=== PATIENT | female | born 1980 | race Two or more races ===

== ENCOUNTER 2024-05-29 10:02 | Outpatient (RCR) | payer MEDICAID, SELFPAY ==
[2024-05-23 11:17] LABS: Basophils % (Auto) 0 % (0-2.5); Eosinophils # (Auto) 0.2 Thou/mm3 (0.0-0.5); Eosinophils % (Auto) 2 % (0-10); Hematocrit 44.9 % (36.0-46.0); Hemoglobin 15.3 g/dL (12.0-16.0); Immature Granulocytes % (Auto) 1 % (0-0); Immature Granulocytes Auto 0.07 Thou/mm3 (0.00-0.00); Lymphocytes # (Auto) 3.3 Thou/mm3 (1.0-4.8); Lymphocytes % (Auto) 36 % (10-50); Mean Corpuscular HGB Conc 34.1 g/dl (31.0-37.0); Mean Corpuscular Hemoglobin 31.9 pg (25.0-35.0); Mean Corpuscular Volume 94 fL (80-100); Monocytes # (Auto) 0.4 Thou/mm3 (0.0-0.8); Monocytes % (Auto) 4 % (0-12); Neutrophils # (Auto) 5.4 Thou/mm3 (1.8-7.7); Neutrophils % (Auto) 58 % (37-80); Nucleated Red Blood Cell % 0 /100 WBC (0); Platelet Count 206 Thou/mm3 (140-440); Red Blood Count 4.79 Miln/mm3 (4.00-5.20); White Blood Count 9.3 Thou/mm3 (3.6-11.0)
[2024-05-23 11:38] LABS: Alanine Aminotransferase 20 U/L (10-49); Albumin, Serum 4.8 gm/dL (3.5-5.0); Albumin/Globulin Ratio 1.7 (1.2-2.2); Alkaline Phosphatase 78 U/L (46-116); Anion Gap 11 (7-16); Aspartate Amino Transferase 17 U/L (0-34); BUN/Creatinine Ratio 26 Ratio (12-20); Bilirubin,Total 0.4 mg/dL (0.3-1.2); Blood Urea Nitrogen 13 mg/dL (9-23); Calcium 9.4 mg/dL (8.3-10.6); Calcium (Corrected) 9.4 mg/dL (8.5-10.1); Carbon Dioxide 25.5 mMol/L (20.0-31.0); Carcinoembryonic Antigen 1.9 ng/mL (0.0-5.0); Chloride 101 mMol/L (98-107); Creatinine (Component) 0.5 mg/dL (0.6-1.3); Globulin 2.9 gm/dL (2.3-3.5); Glucose 135 mg/dL (74-106); Osmolality,Calculated 275 (275-295); Potassium 3.9 mMol/L (3.4-5.1); Sodium 137 mMol/L (136-145); Total Protein 7.7 gm/dL (5.7-8.2); eGFR > 60 See Note
--- NOTE | 2024-06-16 17:48 | CTCFLWUP_ITS ---
Patient: URSZULA RACHEL : 1980 Page 2 of 2 FOLLOW UP NOTE DATE OF SERVICE: 05/29/2024 A telemedicine--patient was called on her phone at the agreed upon time. Confirmed patient's identit y by her name and date of . Patient consented to continue telephone visit. NAME: URSZULA RACHEL ACCOUNT: [id number] : 1980 AGE: 44 REASON FOR VISIT: Follow-up Interval history Patient is here for follow-up. She has been on capecitabine. She had her last scan in February ch showed her in complete remission. She does not have any complaints from capecitabine and recently started her cycle again. 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 Was on maintenance Capecitabine. Capecitabine stopped on 10/12/2022. Capecitabine restarted on 11/18/2023. Ms. Rachel had ileostomy takedown with ileocolectomy on 12/21/2022. History of diabetes Maintenance Capecitabine restarted on 11/18/2023 DATE OF DIAGNOSIS: 07/27/2021 STAGE/TNM: Stage IV metastatic colorectal cancer TREATMENT HISTORY: Care?Plan Start?Date Cycle Day Intent mFOLFOX-6?+?Bevacizumab?5?mg/kg 11/30/2021 1 14 Palliative On capecitabine 06/07/2022 till date HPI Urszula Rachel is a 44-year-old ENG speaking female with history of diabetes has been having int ermittent pain in the lower abdominal region since July 2020. She was initially treated for what antibiotics for UTI. She was also having constipation for last few years. Denies any history of he matochezia or melena. Denies any history of diarrhea. 02/26/2021: Ultrasound of the pelvis? 04/16/2021: CT scan of the pelvis 05/19/2021: Ms. Rachel had CT-guided biopsy of the right pelvic mass? 07/05/2021: Colonoscopy? 08/16/2021: Patient underwent exploratory laparotomy and right colectomy. 11/30/2021: Ms. Rachel received first cycle of modified FOLFOX 6 with Avastin. 11/30/2021 - 05/18/2022: S/p 12 cycles of FOLFOX 6 and bevacizumab. For last 2 cycles Ms. Rachel did no t get oxaliplatin in view of peripheral neuropathy. 03/31/2022: CT scan of the chest abdomen and pelvis with IV contrast 05/22/2022: Ms. Rachel is started on maintenance Capecitabine 2 g p.o. twice daily for 14 days followed by 7 days rest. 2022: CT scan of the chest abdomen and pelvis with IV contrast 10/11/2022: CT scan of the soft tissue of neck with IV contrast 10/12/2022: Capecitabine stopped in anticipation of reversal of colostomy surgery. 12/21/2022: Ms. Rachel had ileostomy reversal as well as repair of the para ileostomy hernia. 08/31/2023: CT scan of the abdomen and pelvis with IV contrast 11/18/2023: Ms. Rachel is started on Capecitabine in the management setting. She was only able to tolera te capecitabine 1 g p.o. twice daily for 14 days. Unfortunately she was having significantly worsene d diarrhea as well as itching and tingling. OTHER MEDICAL HISTORY/CONDITIONS: Diabetes? Colon?CA Exp Lap right colectomy with resection right ovary and fallopian tube; resection colon low anterior r esction with end to end anastomosis; small bowel resection wiht end ileostomy; left salingo-oophorect kt - 08/17/2021 Tonsillectomy - age 17 FAMILY HISTORY: Patient?denies?family?cancer?history. 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 capecitabine - 500 mg 2 tab Twice a Day 2. Januvia - 25 mg 1 tab As directed 3. Marinol - 2.5 mg 1 Capsule twice a day 4. morphine - 30 mg 1 tab three times a day 5. ondansetron HCl - 8 mg 1 tab three times a day 6. Percocet - 10-325 mg 1 tab four times a day 7. pioglitazone - 15 mg 1 tab Daily 8. Steglatro - 15 mg 1 tab Daily Medications Last Reconciled by Araseli Bond LVN on 04/04/2024 ALLERGIES: No Known Drug Allergies REVIEW OF SYSTEMS: A complete 14-point review of systems was performed and is negative except as noted in interval histo ry. LABORATORY DATA: I have personally reviewed and interpreted each of the patient?s relevant lab tests, abnormal finding s are below: Date 05/23/24 ??WHITE?BLOOD?COUNT?(Thou/mm3) 9.3 ??RED?BLOOD?COUNT?(Miln/mm3) 4.79 ??HEMOGLOBIN?(gm/dl) 15.3 ??HEMATOCRIT?(%) 44.9 ??PLATELET?COUNT?(Thou/mm3) 206 ??NEUTROPHILS?%,?AUTO?(%) 58 ??LYMPH?%,?AUTO?(%) 36 ??NEUTROPHILS,?AUTO?(Thou/mm3) 5.4 IMPRESSION/PLAN: Metastatic colorectal cancer Status post 6 cycles of modified FOLFOX with bevacizumab K-mya wild-type BRAF mutation negative KATERIN low tumor mutation burden: Adenocarcinoma of cecum with om ental involvement MMR proficient Had extensive surgery status post ileostomy reversal as well as parallel ileostomy hernia repair 03/30/2023 CT scan of the abdomen and pelvis with IV contrast negative CT scan 02/20/2024 negative for any recurrent tumor Continue capecitabine and maintenance setting CEA is less than [address] chest abdomen pelvis with IV contrast as PET scan was denied RETURN TO CLINIC: RTC in 3 months BILLING AND COMPLIANCE: I reviewed external records from providers outside my specialty as summarized above. I spent a total of 50 minutes on this patient?s care on the day of their visit excluding time spent related to any bi lled procedures. This time includes time spent with the patient as well as time spent documenting in the medical record, reviewing patients records and tests, obtaining history, placing orders, communi cating with other healthcare professionals, counseling the patient, family or caregiver, and/or care coordination for the diagnoses above. Electronically Signed by: Jeremie Cook MD T: 5:46 PM CC: PCP: Vernon Barrett Referring: Vernon Barrett This document was completed utilizing speech recognition software. Grammatical errors, random word in sertions, pronoun errors, and incomplete sentences are an occasional consequence of this system due t o software limitations, ambient noise, and hardware issues. Any formal questions or concerns about th e content, text or information contained within the body of this dictation should be directly address ed to the provider for clarification.
== END 2024-06-18 23:59 | disposition home or self-care (01) ==
LOC: SCTC 10:02
PROVIDERS: PCP Family Medicine; Referring Provider Family Medicine; Visit Provider Internal Medicine Hematology & Oncology
DX: C18.8 Malignant neoplasm of overlapping sites of colon (principal); Z93.2 Ileostomy status; Z90.49 Acquired absence of other specified parts of digestive tract; G62.0 Drug-induced polyneuropathy; T45.1X5D Adverse effect of antineoplastic and immunosuppressive drugs, subsequent encounter; Z92.21 Personal history of antineoplastic chemotherapy
CPT/HCPCS: 36591; 80053; 82378; 85025; J1642

== ENCOUNTER 2024-07-04 07:57 | Outpatient (RCR) | payer MEDICAID, SELFPAY ==
--- NOTE | 2024-07-04 08:37 | CTCFLWUP_ITS ---
[facility] [address] [place], [place] [address] FOLLOW-UP NOTE Date: 07/04/2024 MR#: [id number] Name: URSZULA RACHEL : 1980 Dx: C18.8 Malignant neoplasm of overlapping sites of colon Identification. Patient with stage IV adeno CA the cecum with omental involvement MMR proficient. E xtensive surgery status post ileostomy reversal as well as parallel ileostomy hernia repair 2021 and 2022. Had multiple cycles of FOLFOX bevacizumab recently has been on capecitabine and told to hold for the moment by Dr. Cook according to patient ... New CT scan pending PET scan was denied by insurance. Recent CEA and prior CT scans suggest she i s in remission. Currently awaiting hernia surgery which hopefully will alleviate chronic pain that she is still havin g. Renewed her Percocet and morphine and checked Monitoring Division website. Electronically signed by: Joe Lopez M.D. 07/04/2024 8:34 AM
== END 2024-07-19 23:59 | disposition home or self-care (01) ==
LOC: SCTC 07:57
PROVIDERS: PCP Family Medicine; Referring Provider Family Medicine; Visit Provider Radiology Therapeutic Radiology
DX: C18.8 Malignant neoplasm of overlapping sites of colon (principal); Z93.2 Ileostomy status; G89.29 Other chronic pain
CPT/HCPCS: 99213; G0463

== ENCOUNTER → 2024-07-22 | Outpatient (CLI) | payer MEDICAID, SELFPAY ==
[2024-07-22 11:37] LABS: Basophils % (Auto) 0 % (0-2.5); Eosinophils # (Auto) 0.1 Thou/mm3 (0.0-0.5); Eosinophils % (Auto) 1 % (0-10); Hematocrit 46.3 % (36.0-46.0); Hemoglobin 15.9 g/dL (12.0-16.0); Immature Granulocytes % (Auto) 1 % (0-0); Lymphocytes % (Auto) 28 % (10-50); Mean Corpuscular HGB Conc 34.3 g/dl (31.0-37.0); Mean Corpuscular Hemoglobin 31.6 pg (25.0-35.0); Mean Corpuscular Volume 92 fL (80-100); Monocytes # (Auto) 0.5 Thou/mm3 (0.0-0.8); Monocytes % (Auto) 5 % (0-12); Neutrophils # (Auto) 6.8 Thou/mm3 (1.8-7.7); Neutrophils % (Auto) 65 % (37-80); Nucleated Red Blood Cell % 0 /100 WBC (0); Platelet Count 223 Thou/mm3 (140-440); RDW Standard Deviation 45.4 fL (36.4-46.3); Red Blood Count 5.03 Miln/mm3 (4.00-5.20); White Blood Count 10.6 Thou/mm3 (3.6-11.0)
[2024-07-22 11:52] LABS: Alanine Aminotransferase 19 U/L (10-49); Albumin/Globulin Ratio 1.5 (1.2-2.2); Alkaline Phosphatase 80 U/L (46-116); Anion Gap 11 (7-16); Aspartate Amino Transferase 18 U/L (0-34); BUN/Creatinine Ratio 28 Ratio (12-20); Bilirubin,Total 0.5 mg/dL (0.3-1.2); Blood Urea Nitrogen 14 mg/dL (9-23); Calcium 9.8 mg/dL (8.3-10.6); Calcium (Corrected) 9.8 mg/dL (8.5-10.1); Carbon Dioxide 23.9 mMol/L (20.0-31.0); Chloride 104 mMol/L (98-107); Creatinine (Component) 0.5 mg/dL (0.6-1.3); Globulin 3.3 gm/dL (2.3-3.5); Glucose 144 mg/dL (74-106); Osmolality,Calculated 281 (275-295); Potassium 4.2 mMol/L (3.4-5.1); Sodium 139 mMol/L (136-145); Total Protein 8.3 gm/dL (5.7-8.2); eGFR > 60 See Note
[2024-07-22 12:04] LABS: Carcinoembryonic Antigen 2.1 ng/mL (0.0-5.0)
== END | disposition home or self-care (01) ==
PROVIDERS: PCP Family Medicine; Referring Provider Internal Medicine Hematology & Oncology; Visit Provider Internal Medicine Hematology & Oncology
DX: C18.8 Malignant neoplasm of overlapping sites of colon (principal)
CPT/HCPCS: 36415; 80053; 82378; 85025

== ENCOUNTER → 2024-07-26 | Outpatient (CLI) | payer MEDICAID, SELFPAY ==
--- NOTE | 2024-07-26 14:00 | XR_ITS ---
Examination: CT chest with intravenous contrast CT abdomen with intravenous contrast CT pelvis with intravenous contrast 2-D coronal and sagittal reconstructions Time of exam: July 26, 2024 1431 hours Comparison September 09, 2022 INDICATIONS: Diagnosis malignant neoplasm overlapping sites of: Restaging CTDI: vol (mGy) : 31 DLP: (mGycm): 1387 Technique: Multiple axial images of the chest, abdomen and pelvis with intravenous contrast, 3.0 mm slice thickness. Images obtained post intravenous injection Isovue 370 and colon 60 cc Isovue-370 2-D sagittal coronal reconstructions Low dose protocols, automated exposure control, adjustment MA KV according to patient size FINDINGS: No thoracic aortic aneurysm dilatation No pulmonary artery emboli on this non-CTA study No paratracheal tracheobronchial or bronchopulmonary adenopathy No pneumonia, pulmonary edema, pleural disease or pulmonary nodules Diffuse fatty infiltration throughout the liver, no focal liver lesions, hepatomegaly is present 25 cm Spleen not enlarged No pancreatic or adrenal mass No renal or ureteral calculi Right lateral abdominal wall hernia defect 6.7 cm containing small bowel but no incarcerated bowel 5.2 cm upper abdominal midline hernia defect and adjacent upper abdominal wall hernia defect 4.4 cm also containing small bowel but no incarcerated bowel No abdominal or pelvic hernia defect No diverticulitis 41 mm area of focal fat necrosis in the anterior pelvis No pelvic mass Urinary bladder intact Moderate osteopenia IMPRESSION: Significant hepatomegaly No interval metastatic disease
== END | disposition home or self-care (01) ==
LOC: SCAT 13:31
PROVIDERS: PCP Family Medicine; Referring Provider Internal Medicine Hematology & Oncology; Visit Provider Internal Medicine Hematology & Oncology
DX: R16.0 Hepatomegaly, not elsewhere classified (principal); C18.8 Malignant neoplasm of overlapping sites of colon
CPT/HCPCS: 71260; 74177; A4649; Q9967

== ENCOUNTER 2024-08-09 07:56 | Outpatient (RCR) | payer MEDICAID, SELFPAY ==
[2024-08-09 09:34] LABS: Basophils % (Auto) 0 % (0-2.5); Eosinophils # (Auto) 0.1 Thou/mm3 (0.0-0.5); Eosinophils % (Auto) 2 % (0-10); Hematocrit 45.4 % (36.0-46.0); Hemoglobin 15.1 g/dL (12.0-16.0); Immature Granulocytes % (Auto) 1 % (0-0); Immature Granulocytes Auto 0.13 Thou/mm3 (0.00-0.00); Lymphocytes # (Auto) 3.2 Thou/mm3 (1.0-4.8); Lymphocytes % (Auto) 33 % (10-50); Mean Corpuscular HGB Conc 33.3 g/dl (31.0-37.0); Mean Corpuscular Volume 93 fL (80-100); Monocytes # (Auto) 0.5 Thou/mm3 (0.0-0.8); Monocytes % (Auto) 5 % (0-12); Neutrophils # (Auto) 5.5 Thou/mm3 (1.8-7.7); Neutrophils % (Auto) 58 % (37-80); Nucleated Red Blood Cell % 0 /100 WBC (0); Platelet Count 225 Thou/mm3 (140-440); RDW Standard Deviation 45.6 fL (36.4-46.3); Red Blood Count 4.87 Miln/mm3 (4.00-5.20); White Blood Count 9.5 Thou/mm3 (3.6-11.0)
[2024-08-09 10:02] LABS: Carcinoembryonic Antigen 1.6 ng/mL (0.0-5.0)
[2024-08-09 10:12] LABS: Alanine Aminotransferase 20 U/L (10-49); Albumin, Serum 4.5 gm/dL (3.5-5.0); Albumin/Globulin Ratio 1.6 (1.2-2.2); Alkaline Phosphatase 82 U/L (46-116); Anion Gap 14 (7-16); Aspartate Amino Transferase 15 U/L (0-34); BUN/Creatinine Ratio 23 Ratio (12-20); Bilirubin,Total 0.3 mg/dL (0.3-1.2); Blood Urea Nitrogen 14 mg/dL (9-23); Calcium 9.6 mg/dL (8.3-10.6); Calcium (Corrected) 9.6 mg/dL (8.5-10.1); Carbon Dioxide 21.3 mMol/L (20.0-31.0); Chloride 103 mMol/L (98-107); Creatinine (Component) 0.6 mg/dL (0.6-1.3); Globulin 2.9 gm/dL (2.3-3.5); Glucose 183 mg/dL (74-106); Osmolality,Calculated 281 (275-295); Potassium 3.7 mMol/L (3.4-5.1); Sodium 138 mMol/L (136-145); Total Protein 7.4 gm/dL (5.7-8.2); eGFR > 60 See Note
== END 2024-08-16 23:59 | disposition home or self-care (01) ==
LOC: SCTC 07:56
PROVIDERS: PCP Family Medicine; Referring Provider Family Medicine; Visit Provider Internal Medicine Hematology & Oncology
DX: C18.8 Malignant neoplasm of overlapping sites of colon (principal)
CPT/HCPCS: 36591; 80053; 82378; 85025; A4216; J1642

== ENCOUNTER 2024-10-02 08:31 | Outpatient (RCR) | payer MEDICAID, SELFPAY ==
--- NOTE | 2024-10-02 09:18 | CTCFLWUP_ITS ---
[facility] [address] [place], [place] [address] FOLLOW-UP NOTE Date: 10/02/2024 MR#: [id number] Name: URSZULA RACHEL : 1980 Dx: C18.8 Malignant neoplasm of overlapping sites of colon Identification. Patient with stage IV adeno CA the cecum with omental involvement MMR proficient. Extensive surgery status post ileocolectomy ileostomy reversal as well as parallel ileostomy hernia repair 2021 and 2022. Multiple cycles of FOLFOX bevacizumab. Recently has been on capecitabine and currently being held. Most recent CT chest abdomen pelvis 07/26/2024 significant hepatomegaly no interval met disease. Most recent labs show CEA low at 1.6. Patient has been looking to hernia surgery which she had help alleviate the pain for which she is taking Percocet and morphine ER. Patient reportedly will have consultation next week. Check cures website. Pain meds renewed. Will see her for pain management in 3 months. Electronically signed by: Joe Lopez M.D. 10/02/2024 9:16 AM
== END 2024-10-16 23:59 | disposition home or self-care (01) ==
LOC: SCTC 08:31
PROVIDERS: PCP Family Medicine; Referring Provider Family Medicine; Visit Provider Radiology Therapeutic Radiology
DX: C18.8 Malignant neoplasm of overlapping sites of colon (principal); Z90.49 Acquired absence of other specified parts of digestive tract; R16.0 Hepatomegaly, not elsewhere classified
CPT/HCPCS: 99213; G0463

== ENCOUNTER 2025-01-01 08:35 | Outpatient (RCR) | payer MEDICAID, SELFPAY ==
--- NOTE | 2025-01-01 09:36 | CTCFLWUP_ITS ---
[facility] [address] [place], [place] [address] FOLLOW-UP NOTE Date: 01/01/2025 MR#: [id number] Name: URSZULA RACHEL : 1980 Dx: C18.8 Malignant neoplasm of overlapping sites of colon Identification. Patient with stage IV adeno CA of the cecum with omental involvement MMR proficient. Extensive surgery status post ileocolectomy ileostomy reversal as well as parallel ileostomy hernia repair 2021 and 2022. Surgeries performed at [facility]. Multiple cycles of FOLFOX bevacizumab. Most recently has been on capecitabine currently being held. Most recent CT chest abdomen pelvis 07/26/2024 significant hepatomegaly no interval mets disease. Most recent labs show CEA 1.5 on 08/09/2024 Patient with multiple prior surgeries taking MS ER 30 mg 3 times daily and Percocet 10 every 4 for breakthrough. For chronic abdominal pain. Cures website checked. Lungs clear. Tender irregular abdominal wall noted. No cellulitis. Assessment #1 stage IV colonic adenocarcinoma of cecum with omental involvement status post extensive prior surgeries; postop FOLFOX bevacizumab and capecitabine. #2. Most recent CT chest abdomen pelvis 07/26/2024 showed no interval mets with CEA 1.5 2 not currently on any chemo meds. #3. chronic abdominal pain likely related to prior surgeries has appointment for hernia surgery involving her prior GI surgeon Dr. Dolan and another physician in [place] next month. #4. Renewed her pain meds Percocet 10 4 times daily MSER extended release 30 3 times daily #5. Will see her for another check in 3 months for pain management. Patient reportedly has follow-up with FAMILIA Saldivar. Next week Electronically signed by: Joe Lopez M.D. 01/01/2025 9:34 AM
== END 2025-01-16 23:59 | disposition home or self-care (01) ==
LOC: SCTC 08:35
PROVIDERS: PCP Family Medicine; Referring Provider Family Medicine; Visit Provider Internal Medicine Hematology & Oncology
DX: C18.8 Malignant neoplasm of overlapping sites of colon (principal); R16.0 Hepatomegaly, not elsewhere classified; G89.29 Other chronic pain; R10.9 Unspecified abdominal pain; Z92.21 Personal history of antineoplastic chemotherapy
CPT/HCPCS: 99213; G0463

== ENCOUNTER 2025-04-03 08:35 | Outpatient (RCR) | payer MEDICAID, SELFPAY ==
--- NOTE | 2025-04-03 09:32 | CTCFLWUP_ITS ---
[facility] [address] [place], [place] [address] FOLLOW-UP NOTE Date: 04/03/2025 MR#: [id number] Name: URSZULA RACHEL : 1980 Dx: C18.8 Malignant neoplasm of overlapping sites of colon Identification. Patient with stage IV adeno CA to cecum with omental involvement MMR proficient. Extensive surgery status post ileocolectomy ileostomy reversal as well as partial ileostomy hernia repair 2021 and 2022. Surgeries performed at [facility]. Multiple cycles of FOLFOX bevacizumab. Most recently has been on capecitabine currently being held. Most recent CT chest abdomen pelvis 07/26/2024 significant hepatomegaly with no interval mets disease. Most recent CEA 1.5 on 08/09/2024. Awaiting to have hernia repaired surgery but needs to lose weight first. Has been giving Ozempic injections with primary care provider Dr. Fiore but states that this is causing constipation problem. Currently using morphine and Percocet for pain. Has recently changed pharmacy because [facility] now closed A#1. Stage IV adeno CA to cecum omental involvement extensive surgery very cycles of FOLFOX recently capecitabine which has been held. A#2 states that she will be. seeing a medical oncologist in [place] in the future. A#3. Awaiting hernia surgery but also needs to lose weight first. A#4 Ozempic injections are causing constipation and this is being discussed with her primary care provider A#5. I will see her in 3 months for pain management. Patient currently on morphine and Percocet. Electronically signed by: Joe Lopez M.D. 04/03/2025 9:29 AM
== END 2025-04-18 23:59 | disposition home or self-care (01) ==
LOC: SCTC 08:35
PROVIDERS: PCP Family Medicine; Referring Provider Radiology Therapeutic Radiology; Visit Provider Radiology Therapeutic Radiology
DX: C18.8 Malignant neoplasm of overlapping sites of colon (principal); Z93.2 Ileostomy status
CPT/HCPCS: 99213; G0463